=== PATIENT | female | born 1995 | race Caucasian/White ===

== ENCOUNTER → 2023-01-17 | Outpatient (CLI) | payer SELFPAY ==
[2023-01-17 13:52] LABS: Appearance, Urine Clear (Clear); Bilirubin, Urine Neg (Neg); Blood, Urine Neg (Neg); Color, Urine Amber (P-Yellow); Glucose Qualitative, Urine Neg (Neg); Ketones, Urine 1+ (Neg); Leukocyte Esterase, Urine Neg (Neg); Nitrite, Urine Neg (Neg); Protein, Urine 2+ (Neg); Urobilinogen, Urine NORM (Normal)
[2023-01-17 14:09] LABS: Bacteria Few /hpf; Red Blood Cells, Urine Not Seen /hpf (0-2); Squamous Epithelial Cells Mod /hpf (Few); White Blood Cells, Urine Not Seen /hpf (0-5)
== END | disposition home or self-care (01) ==
LOC: LAB 10:50 → LAB SHORT 10:50
PROVIDERS: Family Medicine
DX: Z34.01 Encounter for supervision of normal first pregnancy, first trimester (principal)
CPT/HCPCS: 81001; 87086

== ENCOUNTER 2023-08-17 13:30 | Inpatient (IN) | payer OTHER ==
[~2023-08-17] VITALS: Ht 162.6 cm; Wt 81.0 kg
[2023-08-17] VITALS (15 sets, daily range): BP systolic 96–150; BP diastolic 53–92
[2023-08-17] MEDS ORDERED: EUTHYROX88 MCG PO (17:42)
[2023-08-17 17:46] LABS: BASOPHILS ABSOLUTE AUTO 0.04 K/mm3 (0.00-0.23); BASOPHILS PERCENT AUTO 0 % (0-2); EOSINOPHILS ABSOLUTE AUTO 0.12 K/mm3 (0.00-0.68); EOSINOPHILS PERCENT AUTO 1 % (0-6); Hematocrit 39.1 % (33.0-51.0); Hemoglobin 13.1 g/dL (11.5-16.0); IMMATURE GRAN ABSOLUTE AUTO 0.07 K/mm3 (0.00-0.10); IMMATURE GRAN PERCENT AUTO 1 % (0-1); LYMPHOCYTES ABSOLUTE AUTO 2.62 K/mm3 (0.84-5.20); LYMPHOCYTES PERCENT AUTO 19 % (21-46); MONOCYTES PERCENT AUTO 6 % (4-13); Mean Corpuscular HGB 33.1 pg (26.0-34.0); Mean Corpuscular HGB Conc 33.5 g/dL (31.5-36.5); Mean Corpuscular Volume 99 fL (80-100); Mean Platelet Volume 10.2 fL (9.1-12.4); NEUTROPHILS ABSOLUTE AUTO 10.31 K/mm3 (1.96-9.15); NEUTROPHILS PERCENT AUTO 73 % (41-73); Platelet Count 295 K/mm3 (150-400); RDW Coefficient Variation 13.5 % (11.7-14.2); RDW Standard Deviation 48.3 fL (35.1-46.3); Red Blood Cell Count 3.96 M/mm3 (3.80-5.20); White Blood Cell Count 14.06 K/mm3 (4.00-11.30)
[2023-08-18] VITALS (11 sets, daily range): BP systolic 103–133; BP diastolic 59–79
--- NOTE | 2023-08-18 11:26 | NUR ---
08-18-23 0730 PT IN BED WITH LIGHTS ALL OFF, CURLED UP AND C/O HEADACHE 06/25, ENCOURAGED FLUIDS TO DRINK, BREAKFAST ON TABLE AND GIVEN DOSE OF TORADOL. CALL TO DR FINNEY RE:POSSIBLE SPINAL HEADACHE. ORDERS GIVEN FOR INCREASED PAIN MEDS
--- NOTE | 2023-08-18 11:30 | NUR ---
08-18-23 0930 PT [facility] FOB BOTH ASLEEP
--- NOTE | 2023-08-18 11:31 | NUR ---
08-18-23 1030 PT AWAKE AND INTO SHOWER, SHE STATES THAT SHE NO LONGER HAS A HEADACHE AT THIS TIME
--- NOTE | 2023-08-18 16:30 | NUR ---
dr bowman at bedside talking with pt and SO about pt headache. dr bowman explaining a wet tap and then options to deal with a wet tap. for now po pain meds are making it manageable for now. he discussed a wet tap options of a blood patch, he told the patient that he would come in personally to do the blood patch tomorrow if the patient wanted one.
--- NOTE | 2023-08-18 18:17 | NUR ---
talked to pt with pt reports pain 03/25. pt has been up since 1400 and hasnt layed down, encouraged to lay down and will reevaluate pain if still at 7/10 will medicate. babyis doing cluster feeding, mom to try feeding while laying down. encouraged belly to belly
[2023-08-19 00:06] VITALS: BP 106/54
[2023-08-19 04:12] VITALS: BP 122/58
[2023-08-19 07:33] VITALS: BP 120/74
--- NOTE | 2023-08-19 08:15 | NUR ---
DR. BREEN IN TO SEE PT RE: SPINAL HEADACHE. DISCUSSED TREATMENT AND PT REQUESTING BLOOD PATCH AT THIS TIME. PT TOLERATED PROCEDURE WELL. DECLINED STEPHENS WITH SITTING UP POST-PROCEDURE.
[2023-08-19] MEDS ORDERED: IBUP800 PO (08:51)
[2023-08-19] MEDS ORDERED: DOCU100 PO (08:51)
[2023-08-19] MEDS ORDERED: PRENATAL TABLE1 EAC2 PO (08:51)
[2023-08-19 11:22] VITALS: BP 128/66
== END 2023-08-19 14:30 | disposition home or self-care (01) | DRG 807 ==
LOC: BC 13:30 → OBS 13:30 → BC 17:27
PROVIDERS: ADMIT Advanced Practice Midwife
PROC: 10E0XZZ Delivery of Products of Conception, External Approach (ICD-10-PCS; principal; 2023-08-18)
PROC: 3E0R3GC Introduction of Other Therapeutic Substance into Spinal Canal, Percutaneous Approach (ICD-10-PCS; 2023-08-19)
DX: O99.824 Streptococcus B carrier state complicating childbirth (principal); Z37.0 Single live birth; E03.9 Hypothyroidism, unspecified; O69.81X0 Labor and delivery complicated by cord around neck, without compression, not applicable or unspecified; Z3A.39 39 weeks gestation of pregnancy; O89.4 Spinal and epidural anesthesia-induced headache during the puerperium; Z79.890 Hormone replacement therapy
CPT/HCPCS: 36415; 51702; 59025; 85025; 86850; 86900; 86901; A9270; J1885; J2405; J2590; J3010; J7120